=== PATIENT | male | born 1950 | race Caucasian/White ===

== ENCOUNTER → 2018-03-24 | Outpatient (CLI) | payer MEDICARE ==
[~2018-03-24] MED LIST: CHOL200024 PO; MULT1TAB60 PO; SERT50TA5 PO; SIMV40TA3 PO
[2018-03-24 16:06] LABS: BASOPHILS # (AUTO) 0.01 x10^3/uL (0-0.1); BASOPHILS % (AUTO) 0 % (0-1); EOSINOPHILS # (AUTO) 0.12 x10^3/uL (0-0.4); EOSINOPHILS % (AUTO) 2 % (1-7); LYMPHOCYTES # (AUTO) 1.06 x10^3/uL (1-3.4); LYMPHOCYTES % (AUTO) 15 % (22-44); MD NO; MEAN CORPUSCULAR HEMOGLOBIN 30.6 pg (27.5-34.5); MEAN CORPUSCULAR HGB CONC 33.7 g/dL (33.2-36.2); MEAN CORPUSCULAR VOLUME 90.8 fL (81-97); MEAN PLATELET VOLUME 7.4 fL (7.4-10.4); MONOCYTES # (AUTO) 0.68 x10^3/uL (0.2-0.8); MONOCYTES % (AUTO) 9 % (2-9); NEUTROPHILS # (AUTO) 5.37 x10^3/uL (1.8-6.8); NEUTROPHILS % (AUTO) 74 % (42-75); PLATELET COUNT 240 x10^3/uL (130-400); RED BLOOD COUNT 4.42 x10^6/uL (4.38-5.82); RED CELL DISTRIBUTION WIDTH 12.8 % (9.4-14.8)
[2018-03-24 16:16] LABS: ANION GAP 8 mmol/L (5-15); CALCIUM 8.7 mg/dL (8.5-10.1); CHLORIDE 106 mmol/L (98-107); CREATININE 0.99 mg/dL (0.7-1.3)
== END ==
LOC: STAR 15:27
PROVIDERS: ATTEND Surgery
DX: Z01.818 Encounter for other preprocedural examination (principal)
CPT/HCPCS: 36415; 80048; 85025; 93005

== ENCOUNTER 2018-03-29 08:21 | Day surgery (SDC) | payer MEDICARE ==
[~2018-03-29] VITALS: Ht 162.6 cm; Wt 70.6 kg
[~2018-03-29 08:21] MED LIST changes: +BUPIVACAINE/PF-EPI 0.5% 1:200K ONE
[2018-03-29] MEDS ORDERED: LACTATED RINGERS 1,000 ML IV SCH (08:48)
[2018-03-29] MEDS ORDERED: OXYcodone IR 5MG TABLET PO ONE (09:00)
[2018-03-29] MEDS ORDERED: GABAPENTIN 300 MG CAPSULE PO ONE (09:00)
[2018-03-29] MEDS ORDERED: ACETAMINOPHEN 500 MG TABLET PO ONE (09:00)
[2018-03-29] MEDS ORDERED: LABETALOL 5MG/ML, 20ML IV PRN (09:30)
[2018-03-29] MEDS ORDERED: EPHEDRINE 50 MG/ML, 1ML IVPush PRN (09:30)
[2018-03-29] MEDS ORDERED: hydrALAzine 20 MG/ML, 1ML IV PRN (09:30)
[2018-03-29] MEDS ORDERED: METOPROLOL 1 MG/ML, 5ML IV PRN (09:30)
[2018-03-29] MEDS ORDERED: ONDANSETRON 2MG/ML, 2ML IVPush PRN (09:30)
[2018-03-29] MEDS ORDERED: MEPERIDINE/PF 25MG/0.5ML IVPush PRN (09:30)
[2018-03-29] MEDS ORDERED: PROMETHAZINE 25 MG/ML, 1ML IV PRN (09:30)
[2018-03-29] MEDS ORDERED: FENTANYL PF 100 MCG/2ML IV PRN (09:30)
[2018-03-29] MEDS ORDERED: morphine SULFATE 10 MG/ML, 1ML IV PRN (09:30)
[2018-03-29] MEDS ORDERED: OXYcodone 5 MG/5 ML ORAL.SOL UDC PO PRN (09:30)
[2018-03-29] MEDS ORDERED: ALBUTEROL SULFATE 2.5 MG/3 ML NPPB PRN (09:30)
[2018-03-29 09:31] VITALS: BP 123/57
[2018-03-29] MEDS ORDERED: CEFAZOLIN 1,000 MG ONE (09:39)
[2018-03-29] MEDS ORDERED: FENTANYL PF 100 MCG/2ML ONE (09:39)
[2018-03-29] MEDS ORDERED: PROPOFOL 10 MG/ML, 20ML ONE (09:39)
[2018-03-29] MEDS ORDERED: ROCURONIUM 10MG/ML,5ML ONE (09:39)
[2018-03-29] MEDS ORDERED: BUPIVACAINE/PF 0.25% ONE (09:41)
[2018-03-29] MEDS ORDERED: ONDANSETRON ODT 8 MG ONE (09:42)
[2018-03-29] MEDS ORDERED: DEXAMETHASONE 4 MG/ML, 1ML ONE (09:42)
[2018-03-29] MEDS ORDERED: OXYcodone 5 MG/5 ML ORAL.SOL UDC ONE (11:27)
== END 2018-03-29 13:50 | disposition home or self-care (01) ==
LOC: OUT 08:21
PROVIDERS: ATTEND Surgery
DX: K40.90 Unilateral inguinal hernia, without obstruction or gangrene, not specified as recurrent (principal); E78.00 Pure hypercholesterolemia, unspecified; F41.9 Anxiety disorder, unspecified
CPT/HCPCS: 49505; C1781; J0690; J1100; J2704; J3010; J3490; J7120; Q0162